=== PATIENT | female | born 1945 | race Caucasian/White ===

== ENCOUNTER → 2022-11-28 09:34 | Outpatient (BNVA) | payer MEDICARE, OTHER, SELFPAY | PROVIDERS: Visit Provider Internal Medicine | DX: M81.0 Age-related osteoporosis without current pathological fracture; R94.6 Abnormal results of thyroid function studies; E07.9 Disorder of thyroid, unspecified; R00.0 Tachycardia, unspecified; E83.39 Other disorders of phosphorus metabolism; Z98.890 Other specified postprocedural states; Z78.9 Other specified health status | CPT/HCPCS: 99204 ==

== ENCOUNTER → 2023-01-30 09:44 | Outpatient (BNVA) | payer MEDICARE, SELFPAY | PROVIDERS: PCP Family Medicine; Visit Provider Internal Medicine | DX: E83.39 Other disorders of phosphorus metabolism (principal); R00.0 Tachycardia, unspecified; M81.0 Age-related osteoporosis without current pathological fracture; Z98.890 Other specified postprocedural states; Z78.9 Other specified health status | CPT/HCPCS: 36415; 80053; 82306; 82310; 83970; 84100; 84439; 84443; 99214 ==

== ENCOUNTER 2023-02-15 13:46 | Outpatient (CLI) | payer MEDICARE, SELFPAY ==
--- NOTE | 2023-02-15 14:00 | XR_ITS ---
WS: [id number] SCREENING DEXA SCAN [employer] CLINICAL INFORMATION: osteoporosis COMPARISON: None. FINDINGS: The RIGHT forearm bone mineral density measures 0.24. This corresponds to a T score score of -4.9 and Z score of -2.4. Left femoral neck bone mineral density measures 0.537 g/cm2. This corresponds to a T score of -3.7 an d Z score of -1.6. Right femoral neck bone mineral density measures 0.527 g/cm2. This corresponds to a T score -3.8of an d Z score of -1.7. Mean femoral neck bone mineral density measures 0.532 g/cm2. This corresponds to a T score of -3.8 an d Z score of -1.7. IMPRESSION: Osteoporosis RIGHT forearm. Osteoporosis femoral necks. Patient's FRAX calculated 10 year probability for major osteoporotic fracture is 28.9% and osteoporot ic hip fracture is 14.2%.
== END 2023-02-15 13:47 | disposition home or self-care (01) ==
LOC: RAD 13:47
PROVIDERS: PCP Family Medicine; Visit Provider Internal Medicine
DX: Z13.820 Encounter for screening for osteoporosis (principal); M81.0 Age-related osteoporosis without current pathological fracture
CPT/HCPCS: 77080

== ENCOUNTER → 2023-03-14 09:32 | Outpatient (BNVA) | payer MEDICARE, SELFPAY | PROVIDERS: PCP Family Medicine; Visit Provider Internal Medicine | DX: E83.39 Other disorders of phosphorus metabolism (principal); R00.0 Tachycardia, unspecified; Z98.890 Other specified postprocedural states; Z78.9 Other specified health status; M81.0 Age-related osteoporosis without current pathological fracture | CPT/HCPCS: 99214 ==

== ENCOUNTER → 2023-06-19 12:47 | Outpatient (BNVA) | payer MEDICARE, SELFPAY | PROVIDERS: PCP Family Medicine; Visit Provider Internal Medicine | DX: E83.39 Other disorders of phosphorus metabolism (principal); R00.0 Tachycardia, unspecified; Z98.890 Other specified postprocedural states; Z78.9 Other specified health status | CPT/HCPCS: 36415; 80053; 82306; 84100; 99214 ==

== ENCOUNTER → 2023-10-15 07:53 | Outpatient (BNVA) | payer MEDICARE, SELFPAY | PROVIDERS: PCP Family Medicine; Visit Provider Internal Medicine | DX: E83.39 Other disorders of phosphorus metabolism (principal); R00.0 Tachycardia, unspecified; Z98.890 Other specified postprocedural states; Z78.9 Other specified health status | CPT/HCPCS: 36415; 80053; 82306; 84100; 99214 ==